=== PATIENT | male | born 1985 | race Two or more races ===

== ENCOUNTER 2017-07-17 21:23 | Emergency (ER) | payer OTHER ==
[~2017-07-17] VITALS: Ht 157.5 cm; Wt 71.2 kg
[2017-07-17 21:32] VITALS: BP 140/82
--- NOTE | 2017-07-17 21:55 | NUR ---
Patient eloped from facility. ER MD notified.
== END 2017-07-17 22:58 | disposition left against medical advice (07) ==
LOC: ER 21:26
DX: Z53.21 Procedure and treatment not carried out due to patient leaving prior to being seen by health care provider (principal)
CPT/HCPCS: A4606; Z7502; Z7610

== ENCOUNTER 2020-09-25 23:08 | Emergency (ER) | payer OTHER ==
[~2020-09-25] VITALS: Ht 160 cm; Wt 70.8 kg
[2020-09-25 23:08] VITALS: BP 132/95
[2020-09-25 23:32] LABS: BASOPHILS # (AUTO) 0.1 K/uL (0.0-0.2); BASOPHILS % (AUTO) 0.9 % (0.0-2.0); EOSINOPHILS % (AUTO) 1.5 % (0.0-6.0); HEMATOCRIT 43 % (39-51); HEMOGLOBIN 15.7 g/dL (13.5-17.5); LYMPHOCYTES # (AUTO) 2.8 K/uL (0.8-4.8); LYMPHOCYTES % (AUTO) 33.6 % (20.0-44.0); MEAN CORPUSCULAR HGB CONC 36 g/dl (31.0-36.0); MEAN CORPUSCULAR VOLUME 86 fL (80-96); MONOCYTES # (AUTO) 0.4 K/uL (0.1-1.30); MONOCYTES % (AUTO) 4.2 % (2.0-12.0); NEUTROPHILS % (AUTO) 59.8 % (43.0-81.0); PLATELET COUNT (AUTO) 235 K/uL (150-450); WHITE BLOOD COUNT (AUTO) 8.4 K/uL (4.3-11.0)
[2020-09-25 23:46] LABS: CALCIUM, SERUM 8.5 mg/dL (8.5-10.1); CREATININE 0.9 mg/dL (0.6-1.3); POTASSIUM 3.4 mmol/L (3.5-5.1)
[2020-09-25 23:53] LABS: BILIRUBIN,TOTAL 0.4 mg/dL (0.2-1.0); TOTAL PROTEIN, SERUM 7.6 g/dL (6.4-8.2)
== END 2020-09-26 02:34 | disposition home or self-care (01) ==
LOC: ER 23:09
DX: R20.2 Paresthesia of skin (principal); Z98.890 Other specified postprocedural states
CPT/HCPCS: 36415; 70450-TC; 80053-TC; 85025-TC

== ENCOUNTER 2022-02-26 10:56 | Emergency (ER) | payer OTHER ==
[~2022-02-26] VITALS: Ht 160 cm; Wt 71.7 kg
[2022-02-26 11:00] VITALS: BP 132/87
[2022-02-26] MEDS ORDERED: FAMO-131 PO (12:19)
[2022-02-26] MEDS ORDERED: DIPH25CA83 PO (12:19)
[2022-02-26] MEDS ORDERED: METH4TAB17 PO (12:19)
== END 2022-02-26 12:47 | disposition home or self-care (01) ==
LOC: ER 11:00
DX: L29.9 Pruritus, unspecified (principal); Z86.16 Personal history of COVID-19; Z98.890 Other specified postprocedural states